=== PATIENT | female | born 1980 | race Two or more races ===

== ENCOUNTER → 2024-03-02 06:51 | Outpatient (REF) | payer OTHER, SELFPAY ==
[2024-03-02 09:09] LABS: % Basophils 0.5 % (0-2); % Eosinophils 1.9 % (0-6); % Immature Granulocytes 0.5 % (0-0.5); % Lymphocytes 27.2 % (20.5-51.1); % Monocytes 8.1 % (1.7-9.3); % Neutrophils 61.8 % (42.2-75.2); Absolute Eosinophils 0.2 10^3/uL (0-0.7); Absolute Lymphocytes 2.3 10^3/uL (1.2-3.4); Absolute Monocytes 0.7 10^3/uL (0.1-0.6); Absolute Neutrophils 5.3 10^3/uL (1.4-6.5); Hematocrit 36.1 % (37.0-47.0); Hemoglobin 12.1 g/dL (12.0-16.0); Mean Corp Hgb Conc. 33.5 g/dL (33.0-37.0); Mean Corpuscular Hgb 28.3 pg (27.0-31.0); Mean Corpuscular Volume 84.3 fL (81.0-99.0); Mean Platelet Volume 10.2 fL (7.4-10.4); Nucleated Red Blood Cells % 0 %; Platelet Count 281 10^3/uL (130-400); Red Blood Cell Count 4.28 10^6/uL (4.20-5.40); Red Cell Dist. Width 14.3 % (11.5-14.5); White Blood Cell Count 8.6 10^3/uL (4.8-10.8)
[2024-03-02 10:06] LABS: HDL Cholesterol 84 mg/dl; LDL Cholesterol, Calculated 99 mg/dl; Total Cholesterol 220 mg/dl (50-199); Triglyceride 189 mg/dl (10-149); Very Low Density Lipoprotein 37 mg/dl (0-30)
[2024-03-02 10:26] LABS: Vitamin D, 25-OH*** 35.8 ng/mL (30-80)
== END ==
LOC: CLINIC 06:51
PROVIDERS: ATTENDING PHYSICIAN Nurse Practitioner Adult Health
DX: G44.209 Tension-type headache, unspecified, not intractable (principal); E55.9 Vitamin D deficiency, unspecified; Z13.220 Encounter for screening for lipoid disorders
CPT/HCPCS: 36415; 80061; 82306; 85025